=== PATIENT | male | born 1960 | race Caucasian/White ===

== ENCOUNTER → 2023-08-24 | Day surgery (SDC) | payer BC | END | disposition home or self-care (01) | LOC: MSO 09:23 | DX: Z12.11 Encounter for screening for malignant neoplasm of colon (principal); D12.3 Benign neoplasm of transverse colon | CPT/HCPCS: 00811; J2704; J7120 ==

== ENCOUNTER 2024-03-21 11:02 | Emergency (ER) | payer BC ==
[~2024-03-21] VITALS: Ht 177.8 cm; Wt 92.4 kg
[2024-03-21] MEDS ORDERED: NS 1,000 ML IV SCH (11:15)
[2024-03-21] MEDS ORDERED: Ketorolac 30 MG/ML VIAL IV ONE (11:15)
[2024-03-21] MEDS ORDERED: LISINOPRIL20 MG PO (11:18)
[2024-03-21] MEDS ORDERED: SIMVASTATIN20 M1 PO (11:19)
[2024-03-21 11:20] LABS: HEMATOCRIT 53.1 % (42.0-52.0); HEMOGLOBIN 17.7 g/dL (13.5-18.0); MEAN CELL VOLUME 91 fl (78-100); MEAN CORPUSCULAR HEMOGLOBIN 30 pg (27-31); MEAN CORPUSCULAR HGB CONC 33 g/dL (33-37); MEAN PLATELET VOLUME 8.5 fl (7.4-10.4); PLATELET COUNT 289 K/mm3 (130-400); RED BLOOD COUNT 5.87 M/mm3 (4.20-5.60)
[2024-03-21 11:22] LABS: ALBUMIN 4.5 g/dL (3.4-4.8)
[2024-03-21 11:25] LABS: TOTAL PROTEIN 8.4 g/dL (6.2-8.1)
[2024-03-21 11:26] LABS: TOTAL BILIRUBIN 1.5 mg/dL (0.2-1.2)
[2024-03-21 11:27] LABS: WHITE BLOOD COUNT 20.4 K/mm3 (4.8-10.8)
[2024-03-21 11:32] LABS: LYMPHOCYTE 8 % (20-51); MONOCYTE 8 % (3-10); NEUTROPHILS 84 % (42-75)
[2024-03-21] MEDS ORDERED: Iohexol 300 - 100 ML VIAL IV ONE (11:47)
[2024-03-21 13:38] LABS: PH-URINE 8.5 (5.0 - 8.0); URINE APPEARANCE TURBID (CLEAR); URINE BILIRUBIN NEGATIVE (NEGATIVE); URINE BLOOD 2+ (NEGATIVE); URINE COLOR YELLOW (YELLOW); URINE GLUCOSE NEGATIVE (NEGATIVE); URINE KETONE NEGATIVE (NEGATIVE); URINE NITRATE POSITIVE (NEGATIVE); URINE PROTEIN(semi-quant) 2+ (NEGATIVE)
[2024-03-21 13:39] LABS: URINE LEUKOCYTE ESTERASE 3+ (NEGATIVE); URINE WBC >50 /hpf (0-3)
[2024-03-21 13:40] LABS: URINE MUCUS PRESENT (NOT PRESENT)
[2024-03-21] MEDS ORDERED: cefTRIAXone 1 G in Water For Injection,Sterile 10 ML IV SCH (14:30)
[2024-03-21] MEDS ORDERED: CEPHALEXIN500 M2 PO (14:34)
[2024-03-21 14:47] VITALS: BP 121/66
== END 2024-03-21 14:55 | disposition home or self-care (01) ==
LOC: ED 11:02
PROVIDERS: Nurse Practitioner Family
DX: N39.0 Urinary tract infection, site not specified (principal)
CPT/HCPCS: J0696; J1885; J7030; Q9967